=== PATIENT | female | born 1985 | race Caucasian/White ===

== ENCOUNTER 2018-09-08 17:48 | Emergency (ER) | payer OTHER ==
[2018-09-08] MEDS ORDERED: CLINDAMYCIN HCL CAP 150 MG CAP PO ONE (18:02)
[2018-09-08 18:05] VITALS: BP 115/69; TEMP 97.4; O2SAT 100
--- NOTE | 2018-09-08 18:05 | ED.PDOC ---
History of Present Illness - General Chief Complaint: Dental/Mouth Stated Complaint: tooth pain with facial swelling Time Seen by Provider: 09/08/18 17:58 Source: patient Exam Limitations: no limitations - History of Present Illness Initial Comments: the patient is a 33-year-old female presented to emergency room secondary to an infected posterior dental caries on the left mandible. She has a dental root infection of the wisdom tooth on the left mandible. She has had some swelling and pain for the last 24-48 hours. No fever. She does have multiple dental caries. Timing/Duration: other - 48 hours Severity: moderate Improving Factors: nothing Worsening Factors: eating Associated Symptoms: denies symptoms Allergies/Adverse Reactions: Allergies NO KNOWN ALLERGY Allergy (Verified 04/02/16 23:46) Home Medications: Ambulatory Orders Clindamycin HCl 300 mg PO Q8H #30 cap 09/08/18 Tramadol HCl 50 mg PO Q8HR PRN #20 tab 09/08/18 Review of Systems - Review of Systems Constitutional: States: no symptoms reported EENTM: States: see HPI Respiratory: States: no symptoms reported Cardiology: States: no symptoms reported Gastrointestinal/Abdominal: States: no symptoms reported Genitourinary: States: no symptoms reported Musculoskeletal: States: no symptoms reported Skin: States: no symptoms reported Neurological: States: no symptoms reported Endocrine: States: no symptoms reported All other Systems: No Change from Baseline Past Medical History (General) - Patient Medical History Hx Asthma: No Hx Hypertension: No Hx Diabetes: No - Vaccination History Hx Tetanus, Diphtheria Vaccination: Yes Hx Influenza Vaccination: No Hx Pneumococcal Vaccination: No - Social History Hx Tobacco Use: No Hx Alcohol Use: No - Female History Patient : No Family Medical History - Family History Mother Family History: Unknown Living Status: Unknown Physical Exam - Physical Exam General Appearance: Alert, Comfortable, No apparent distress Eye Exam: bilateral normal Ears, Nose, Throat: hearing grossly normal, other - see history of present illness Neck: full range of motion, supple Respiratory: no respiratory distress, no accessory muscle use Cardiovascular/Chest: normal peripheral pulses, no edema Peripheral Pulses: radial,right: 2+, radial,left: 2+ Rectal Exam: deferred Extremity: normal range of motion, non-tender, normal capillary refill Neurologic: operations consultant II-XII nml as tested, alert, normal mood/affect, oriented x 3 Skin Exam: normal color Progress - Progress Progress: 09/08/18 18:04 the patient's 33-year-old female presenting to emergency room secondary to a dental root infection with mild facial swelling that extends from the left posterior mandible. There is nothing drainable at this point. The patient is going to be placed on clindamycin 300 mg 3 times a day for 10 days. She can take Aleve or Motrin as needed to help reduce inflammation and discomfort. Ultimately she needs to see a dentist to have this dealt with definitively. ER warnings were given. She needs to keep herself well hydrated. Topical Orajel may provide some minimal relief. Departure - Departure Clinical Impression: Infected dental caries Disposition: Discharge to Home or Self Care Condition: Fair Departure Forms: ED Discharge - Pt. Copy, Patient Portal Self Enrollment Instructions: DI for Dental Pain Diet: regular diet Activity: increase activity as tolerated Referrals: Ever Sebastian MD [Primary Care Provider] - 1-2 Weeks Prescriptions: Tramadol HCl 50 mg PO Q8HR PRN #20 tab PRN Reason: Toothache Pain Clindamycin HCl 300 mg PO Q8H #30 cap Home Medications: Ambulatory Orders Clindamycin HCl 300 mg PO Q8H #30 cap 09/08/18 Tramadol HCl 50 mg PO Q8HR PRN #20 tab 09/08/18 Additional Instructions: the patient's 33-year-old female presenting to emergency room secondary to a dental root infection with mild facial swelling that extends from the left posterior mandible. There is nothing drainable at this point. The patient is going to be placed on clindamycin 300 mg 3 times a day for 10 days. She can take Aleve or Motrin as needed to help reduce inflammation and discomfort. Ultimately she needs to see a dentist to have this dealt with definitively. ER warnings were given. She needs to keep herself well hydrated. Topical Orajel may provide some minimal relief.
== END 2018-09-08 18:45 | disposition home or self-care (01) ==
LOC: ER 17:48
DX: K04.7 Periapical abscess without sinus (principal); K02.9 Dental caries, unspecified